=== PATIENT | female | born 1950 | race Caucasian/White ===

== ENCOUNTER 2021-02-04 03:58 | Emergency (ER) | payer MEDICARE, BC ==
[~2021-02-04] VITALS: Ht 167.6 cm; Wt 90.7 kg
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
[2021-02-04] MEDS ORDERED: TDAP [DIPH/PERTUSSIS/TET] 0.5 ML VIAL IM ONE ×2 (04:30→04:37)
[2021-02-04] MEDS ORDERED: LIDOCAINE 1% INJ 50 ML MDV IJ ONE (04:37)
--- NOTE | 2021-02-04 04:53 | NUR ---
JOSE MORIN AT BEDSIDE.
[2021-02-04] MEDS ORDERED: IBUP-1955 PO (05:20)
[2021-02-04] MEDS ORDERED: AMOX-430 PO (05:20)
[2021-02-04] MEDS ORDERED: AMOX/CLAVULANATE 875 MG TABLET ONE (05:25)
[2021-02-04] MEDS ORDERED: AMOX/CLAVULANATE 875 MG TABLET PO ONE (05:30)
--- NOTE | 2021-02-04 05:40 | NUR ---
Patient discharged to home in stable condition. Written and verbal after care instructions given. Patient verbalizes understanding of instruction and RX. Pt told to come back to the ED for wound check and suture removal.
[2021-02-04 06:08] VITALS: BP 138/83
== END 2021-02-04 06:08 | disposition home or self-care (01) ==
LOC: ER 04:01
DX: S02.122A Fracture of orbital roof, left side, initial encounter for closed fracture (principal); S02.0XXA Fracture of vault of skull, initial encounter for closed fracture; S01.81XA Laceration without foreign body of other part of head, initial encounter; S01.112A Laceration without foreign body of left eyelid and periocular area, initial encounter; S01.511A Laceration without foreign body of lip, initial encounter; Z88.5 Allergy status to narcotic agent; Z88.6 Allergy status to analgesic agent; W01.0XXA Fall on same level from slipping, tripping and stumbling without subsequent striking against object, initial encounter; Y93.89 Activity, other specified; Y92.098 Other place in other non-institutional residence as the place of occurrence of the external cause; Y99.8 Other external cause status
CPT/HCPCS: 12014; 70450; 70486; 99285; J3490; 90715

== ENCOUNTER 2021-02-06 09:03 | Emergency (ER) | payer MEDICARE, BC ==
[~2021-02-06] VITALS: Ht 167.6 cm; Wt 90.7 kg
[~2021-02-06 09:03] MED LIST: AMOX-430 PO; IBUP-1955 PO
[2021-02-06 09:12] VITALS: BP 147/84
== END 2021-02-06 09:32 | disposition home or self-care (01) ==
LOC: ER 09:06
DX: S01.81XD Laceration without foreign body of other part of head, subsequent encounter (principal); Z88.5 Allergy status to narcotic agent; Z88.6 Allergy status to analgesic agent; Z60.2 Problems related to living alone; X58.XXXD Exposure to other specified factors, subsequent encounter

== ENCOUNTER 2021-02-11 15:10 | Emergency (ER) | payer MEDICARE, BC ==
[~2021-02-11] VITALS: Ht 167.6 cm; Wt 90.7 kg
[2021-02-11 15:20] VITALS: BP 145/90
--- NOTE | 2021-02-11 15:30 | NUR ---
AT BEDSIDE FOR EVAL.
--- NOTE | 2021-02-11 15:35 | NUR ---
SUTURE REMOVED BY .
--- NOTE | 2021-02-11 15:45 | NUR ---
Patient discharged to home in stable condition. Written and verbal after care instructions given. Patient verbalizes understanding of instruction.
== END 2021-02-11 15:45 | disposition home or self-care (01) ==
LOC: ER 15:12
DX: S01.21XD Laceration without foreign body of nose, subsequent encounter (principal); Z88.5 Allergy status to narcotic agent; Z88.8 Allergy status to other drugs, medicaments and biological substances; Z60.2 Problems related to living alone; X58.XXXD Exposure to other specified factors, subsequent encounter